=== PATIENT | male | born 1990 | race Hispanic/Latino ===

== ENCOUNTER 2025-01-03 08:43 | Emergency (ER) | payer SELFPAY ==
[2025-01-03] MEDS ORDERED: Sodium Bicarb 50 MEQ/50 ML Abboject 8.4% SYRINGE ONE (08:46)
[2025-01-03] MEDS ORDERED: EPINEPHrine 1 MG/10 ML Abboject SYRINGE ONE (08:46)
[2025-01-03] MEDS ORDERED: Dextrose 50% Abboject 50 ML SYRINGE ONE (08:46)
[2025-01-03] MEDS ORDERED: Magnesium 5 GM/10 ML Abboject SYRINGE ONE (08:46)
[2025-01-03] MEDS ORDERED: Calcium Chloride 1 GM/10 ML Abboject SYRINGE ONE (08:46)
== END 2025-01-03 09:07 | disposition expired ==
LOC: ERS 08:43
DX: I46.9 Cardiac arrest, cause unspecified (principal)
CPT/HCPCS: 31500; 36416; 92950; 96374; 96375; 96376; J0165; J0282; J3475; J7999